=== PATIENT | female | born 1990 | race Caucasian/White ===

== ENCOUNTER 2024-05-04 12:59 | Outpatient (OUT) | payer BC, SELFPAY | END 2024-05-04 13:00 | disposition home or self-care (01) | LOC: PST 13:00 | PROVIDERS: Visit Provider Surgery | DX: Z01.818 Encounter for other preprocedural examination (principal); R10.13 Epigastric pain ==

== ENCOUNTER 2024-05-12 09:15 | Day surgery (SDC) | payer BC, SELFPAY ==
--- OUTSIDE RECORDS SUMMARY | 2024-05-12 09:23 | XMS_ITS | CCD ---
Author Organization [facility] [employer] [facility] Care Team Providers Care Certified Solid Waste Facility Operator Name Role Phone DHAVAL OCAMPO Unavailable Unavailable GIORGI-LAINA KATHERINE LEXY Unavailable Unav ailable Fru, [place] Primary Care Provider [phone] Fruth DIRECTOR WORK - SERVICE PROVIDER, [place] Primary Care Provider [phone] Fruth DIRECTOR WORK - SERVICE PROVIDER, [place] Primary Care Provider YUDITH PINA Referring Unavailabl e FRUTH, STACY Primary Care Unavailable BRYANT CORDOVA Referring Unavailable FRUTH, STACY Primary Care Unavailable BRYANT CORDOVA Referring Unavailable FRUTH, STACY Primary Care Unavailable FRUTH, STACY Primary Care Unavailable BRYANT CORDOVA Referring Unavailable FRUTH, STACY Primary Care Unavailable BRYANT CORDOVA Referring Unavailable FRUTH, STACY Primary Care Unavailable FRUTH, STACY E Attending Unavailable BRYATN CORDOVA Attending Unavailable BRYANT CORDOVA Attending Unavailable ONIEL KELLY Attending Unavailable Allergies Allergy Classification Reported Allergen(s) Allergy Type Date of Onset Reaction(s) Facility (4 sources) Penicillins; Translations: [PENICILLINS] Propensity to adverse reactions to drug (disorder) 7 [facility] Three Repository Medications Current Medications Medication Drug Class(es) Dates Sig (Normalized) Sig (Original) ALPRAZolam 0.25 mg oral tablet (2 sources) Benzodiazepine take 1 tablet by mouth once daily as needed for sleep ALPRAZolam (XANAX) 0.25 MG tablet Take 1 tablet by mouth nightly as needed for Sleep. Active busPIRone hydrochloride 15 mg oral tablet (3 sources) take 1 tablet by mouth once daily busPIRone (BUSPAR) 15 MG tablet Take 15 mg by mouth daily Active diphenhydrAMINE hydrochloride 25 mg oral tablet (2 sources) Histamine-1 Receptor Antagonist take 1 tablet by mouth every six hours as needed diphenhydrAMINE (BENADRYL) 25 MG tablet Take 25 mg by mouth every 6 hours as needed for Itching Active Ethinyl Estradiol / Ferrous fumarate / Norethindrone (4 sources) Estrogen Start: 01-22-2024 take 1 tablet by mouth once daily Norethin Glenn-Eth Estrad-FE (BLISOVI 24 FE) 1-20 MG-MCG(24) TABS Indications: Irregular menses Take 1 tablet by mouth daily 84 tablet 4 01/22/2024 Active Start: 10-15-2023 take 1 tablet by chuck th once daily BLISOVI 24 FE 1-20 MG-MCG(24) TABS Indications: Irregular menses TAKE 1 TABLET BY MOUTH EVERY DAY 84 tablet 1 10/15/2023 Active Start: 10-29-2018 take 1 tablet by chuck th once daily Norethin Glenn-Eth Estrad-FE 1-20 MG-MCG(24) TABS Indications: Irregular menses Take 1 tablet by mouth daily 28 tablet 12 10/29/2018 Active Start: 09-03-2018 take 1 tablet by chuck th once daily Norethin Glenn-Eth Estrad-FE 1-20 MG-MCG(24) TABS Indications: Irregular menses Take 1 tablet by mouth daily 28 tablet 12 09/03/2018 Active famotidine 20 mg oral tablet (1 source) Histamine-2 Receptor Antagonist Start: 08-27-2022 take 1 tablet by mouth in the morning famotidine (PEPCID) 20 MG tablet Take 1 tablet by mouth in the morning and 1 tablet in the evening. 08/27/2022 Active levonorgestrel 0.627771 mg/hr intrauterine system (1 source) Progestin, Progestin-containi ng Intrauterine Device Start: 09-26-2017 levonorgestrel (MIRENA) IUD 52 mg 1 each losartan potassium 50 mg oral tablet (1 source) Angiotensin 2 Receptor Bhargavi take 1 tablet by mouth once daily losartan (COZAAR) 50 MG tablet Take 1 tablet by mouth daily Active methylPREDNISolone 4 mg oral tablet (2 sources) Corticosteroid Start: 08-14-2022 methylPREDNISolone (MEDROL DOSEPACK) 4 MG tablet Indications: Rash and nonspecific skin eruption Take by mouth. 1 kit 08/14/2022 Active Completed/Discontinued Medications Medication Drug Class(es) Dates Sig (Normalized) Sig (Original) cloNIDine hydrochloride 0.1 mg oral tablet (1 source) Central alpha-2 Adrenergic Agonist Start: 12-23-2023 End: 12-23-2023 cloNIDine (CATAPRES) tablet 0.1 mg iopamidol (ISOVUE-370) 76 % injection 75 mL (1 source) Start: 04-21-2024 End: 04-21-2024 take 1 dose intravenously once 75 mL, IntraVENous, IMG ONCE PRN, 1 dose, Starting on Sat04/21/24 at 1349, Until Sat04/21/24 at 1402, Other 1 ml LORazepam 2 mg/ml injection (1 source) Benzodiazepine Start: 12-23-2023 End: 12-23-2023 LORazepam (ATIVAN) injection 1 mg Problems Active Problems Problem Classification Problem Date Documented Da te Episodic/Chronic Abdominal pain (7 sources) Finding of sensation of abdomen; Translations: [Unspecified abdominal pain] Onset: 07-12-2017 Resolved: 07-14-2017 07-14-2017 Episodic Essential hypertension (2 sources) Hypertensive disorder; Translations: [Essential (primary) hypertension] Onset: 12-23-2023 12-23-2023 Chronic Nausea and vomiting (4 sources) Nausea; Translations: [Nausea] Onset: 04-17-2024 04-21-2024 Episodic Past or Other Problems Problem Classification Problem Date Documented Da te Episodic/Chronic Allergic reactions (2 sources) Allergic contact dermatitis, unspecified cause; Translations: [Allergic contact dermatitis, unspecified cause] Onset: 02-12-2017 Episodic Diabetes or abnormal glucose tolerance complicating ; childbirth; or the puerperium (3 sources) Gestational diabetes mellitus; Translations: [Gestational diabetes mellitus in , unspecified control] Onset: 05-15-2017 05-15-2017 Episodic Other and delivery including normal (3 sources) Normal ; Translations: [Encounter for supervision of normal first , third trimester] Onset: 07-12-2017 Resolved: 07-14-2017 07-14-2017 Episodic Other screening for suspected conditions (not mental disorders or infectious disease) (1 source) Encounter for screening for malignant neoplasm of cervix; Translations: [Encounter for screening for malignant neoplasm of cervix] Onset: 01-22-2024 Episodic Unclassified (1 source) Finding of sensation of abdomen; Translations: [Abdominal cramping] Onset: 07-12-2017 Resolved: 07-14-2017 07-14-2017 Results Test Name Value Interpretation Reference Range Facility CT ABDOMEN PELVIS W IV CONTR Luis Fernando 04-21-2024 CT ABDOMEN PELVIS W IV CONTRAST EXAMINATION: CT OF THE ABDOMEN AND PELVIS WITH CONTRAST 04/21/2024 2:06 pm TECHNIQUE: CT of the abdomen and pelvis was performed with the administration of intravenous contrast. Multiplanar reformatted images are provided for review. Automated exposure control, iterative reconstruction, and/or weight based adjustment of the mA/kV was utilized to reduce the radiation dose to as low as reasonably achievable. COMPARISON: None. HISTORY: ORDERING SYSTEM PROVIDED HISTORY: Abdominal pain, epigastric TECHNOLOGIST PROVIDED HISTORY: Abdominal pain, possible ileus per xr STAT Creatinine as needed:->Yes FINDINGS: CARDIOVASCULAR: The visualized heart and pericardium demonstrate no acute abnormality. The aorta and branch vessels are patent and normal in caliber. LUNG BASES: There are no focal consolidations or pleural effusions. HEPATOBILIARY: There are no focal hepatic lesions. There is no biliary ductal dilatation. The gallbladder is unremarkable. SPLEEN: Unremarkable. PANCREAS: Unremarkable ADRENAL GLANDS: Unremarkable. KIDNEYS: Kidneys are normal in size and contour and demonstrate symmetric enhancement. There is no hydronephrosis. ABDOMINAL NODES: No adenopathy is appreciated. PELVIC ORGANS: The urinary bladder is unremarkable. The uterus is unremarkable. PERITONEUM/MESENTERY/B OWEL: The stomach is unremarkable. There is no bowel obstruction. There is no bowel wall thickening. The appendix is normal. BONES/SOFT TISSUES: There is no acute osseous or soft tissue abnormality. IMPRESSION: No acute intra-abdominal or pelvic process. Interpreted by: Eric De Oliveira MD Signed by: Eric De Oliveira MD 04/21/24 Final result Normal [facility] CT Abdomen and Pelvis W cont rast José 04-21-2024 No acute intra-abdominal or pelvic process. [facility] RIS CONSOLIDATED EXAMINATION: CT OF THE ABDOMEN AND PELVIS WITH CONTRAST 04/21/2024 2:06 pm TECHNIQUE: CT of the abdomen and pelvis was performed with the administration of intravenous contrast. Multiplanar reformatted images are provided for review. Automated exposure control, iterative reconstruction, and/or weight based adjustment of the mA/kV was utilized to reduce the radiation dose to as low as reasonably achievable. COMPARISON: None. HISTORY: ORDERING SYSTEM PROVIDED HISTORY: Abdominal pain, epigastric TECHNOLOGIST PROVIDED HISTORY: Abdominal pain, possible ileus per xr STAT Creatinine as needed:->Yes FINDINGS: CARDIOVASCULAR: The visualized heart and pericardium demonstrate no acute abnormality. The aorta and branch vessels are patent and normal in caliber. LUNG BASES: There are no focal consolidations or pleural effusions. HEPATOBILIARY: There are no focal hepatic lesions. There is no biliary ductal dilatation. The gallbladder is unremarkable. SPLEEN: Unremarkable. PANCREAS: Unremarkable ADRENAL GLANDS: Unremarkable. KIDNEYS: Kidneys are normal in size and contour and demonstrate symmetric enhancement. There is no hydronephrosis. ABDOMINAL NODES: No adenopathy is appreciated. PELVIC ORGANS: The urinary bladder is unremarkable. The uterus is unremarkable. PERITONEUM/MESENTERY/B OWEL: The stomach is unremarkable. There is no bowel obstruction. There is no bowel wall thickening. The appendix is normal. BONES/SOFT TISSUES: There is no acute osseous or soft tissue abnormality. [facility] RIS CONSOLIDATED Eric De Oliveira MD - 04/21/2024 EXAMINATION: CT OF THE ABDOMEN AND PELVIS WITH CONTRAST 04/21/2024 2:06 pm TECHNIQUE: CT of the abdomen and pelvis was performed with the administration of intravenous contrast. Multiplanar reformatted images are provided for review. Automated exposure control, iterative reconstruction, and/or weight based adjustment of the mA/kV was utilized to reduce the radiation dose to as low as reasonably achievable. COMPARISON: None. HISTORY: ORDERING SYSTEM PROVIDED HISTORY: Abdominal pain, epigastric TECHNOLOGIST PROVIDED HISTORY: Abdominal pain, possible ileus per xr STAT Creatinine as needed:->Yes FINDINGS: CARDIOVASCULAR: The visualized heart and pericardium demonstrate no acute abnormality. The aorta and branch vessels are patent and normal in caliber. LUNG BASES: There are no focal consolidations or pleural effusions. HEPATOBILIARY: There are no focal hepatic lesions. There is no biliary ductal dilatation. The gallbladder is unremarkable. SPLEEN: Unremarkable. PANCREAS: Unremarkable ADRENAL GLANDS: Unremarkable. KIDNEYS: Kidneys are normal in size and contour and demonstrate symmetric enhancement. There is no hydronephrosis. ABDOMINAL NODES: No adenopathy is appreciated. PELVIC ORGANS: The urinary bladder is unremarkable. The uterus is unremarkable. PERITONEUM/MESENTERY/B OWEL: The stomach is unremarkable. There is no bowel obstruction. There is no bowel wall thickening. The appendix is normal. BONES/SOFT TISSUES: There is no acute osseous or soft tissue abnormality. IMPRESSION: No acute intra-abdominal or pelvic process. [facility] Radiology Study observation (narrative) [facility] CT Abdomen and Pelvis W cont rast IVOrdered By: Eric De Oliveira on 04-21-2024 [facility] Work Phone: Amylaseon 04-17-2024 Amylase [Catalytic activity/Vol] 30 U/L Normal 28-100 [facility] Comment on above: Performed By: #### C DP, BHCG, LIP, CP, GUEVARA #### [facility] [address] [place] [address] [place] [address] [employer] Driver Off [address]: Vincenzo Doherty MD CBC with Diffon 04-17-2024 Abs. Basophil 0.03 k/uL Normal 0.00-0.20 [facility] Comment on above: Performed By: #### C DP, BHCG, LIP, CP, GUEVARA #### [facility] [address] [place], [place] [id number] [employer]ump Truck Driver Off Highway: Vincenzo Doherty MD Abs.Imm.Granulocyte <0.03 Normal 0.00-0.30 [facility] Comment on above: Performed By: #### C DP, BHCG, LIP, CP, GEUVARA #### [facility] [address] [place] [address] [employer] Driver Off [address]: Vincenzo Doherty MD Abs.Neutrophil (Seg) 5.15 k/uL Normal 1.50-8.10 [facility] Comment on above: Performed By: #### C DP, BHCG, LIP, CP, GUEVARA #### [facility] [address] [place], [place] [id number] [employer] Driver Off Highway: Vincenzo Doherty MD Basophils/100 WBC (Bld) 0 % Normal 0-2 [facility] Comment on above: Performed By: #### C DP, BHCG, LIP, CP, GUEVARA #### [address] [place], [facility]83 [employer] Driver Off Highway: Vincenzo Doherty MD Eosinophils (Bld) [#/Vol] 0.04 10*3/uL Normal 0.00-0.44 [facility] Comment on above: Performed By: #### C DP, BHCG, LIP, CP, GUEVARA #### [address] [place], [place] [address] [employer] Driver Off Highway: Vincenzo Doherty MD Eosinophils/100 WBC (Bld) 1 % Normal 1-4 [facility] Comment on above: Performed By: #### C DP, BHCG, LIP, CP, GUEVARA #### [address] [place], [facility]83 [employer] Driver Off Highway: Vincenzo Doherty MD Erythrocyte distribution width (RBC) [Ratio] 12.0 % Normal 11.8-14.4 [facility] Comment on above: Performed By: #### C DP, BHCG, LIP, CP, GUEVARA #### [address] [place] [address] [employer] Driver Off [address]: Vincenzo Doherty MD Hematocrit (Bld) [Volume fraction] 40.1 % Normal 36.3-47.1 [facility] Comment on above: Performed By: #### C DP, BHCG, LIP, CP, GUEVARA #### [address] [place], [facility]83 [employer]ump Truck Driver Off Highway: Vincenzo Doherty MD Hemoglobin (Bld) [Mass/Vol] 13.7 g/dL Normal 11.9-15.1 [facility] Comment on above: Performed By: #### C DP, BHCG, LIP, CP, GUEVARA #### [address] [place], [facility]83 [employer] Driver Off Highway: Vincenzo Doherty MD Immature granulocytes/100 WBC (Bld) 0 % Normal 0 [facility] Comment on above: Performed By: #### C DP, BHCG, LIP, CP, GUEVARA #### [facility] [address] [place], [place] [address] [employer] [address] Driver Off [address]: Vincenzo Doherty MD Lymphocytes (Bld) [#/Vol] 1.31 10*3/uL Normal 1.10-3.70 [facility] Comment on above: Performed By: #### C DP, BHCG, LIP, CP, GUEVARA #### [facility] [address] [place], [facility]83 Dump Truck Driver Off Highway: Vincenzo Doherty MD Lymphocytes/100 WBC (Bld) 19 % Low 24-43 [facility] Comment on above: Performed By: #### C DP, BHCG, LIP, CP, GUEVARA #### [address] [place], [place] [address] [employer] [address] Driver Off [address]: Vincenzo Doherty MD MCH (RBC) [Entitic mass] 32.2 pg Normal 25.2-33.5 [facility] Comment on above: Performed By: #### C DP, BHCG, LIP, CP, GUEVARA #### [address] [place], [facility]83 Dump Truck Driver Off Highway: Vincenzo Doherty MD MCHC (RBC) [Mass/Vol] 34.2 g/dL Normal 28.4-34.8 [facility] Comment on above: Performed By: #### C DP, BHCG, LIP, CP, GUEVARA #### [address] [place], [facility]83 Dump Truck Driver Off Highway: Vincenzo Doherty MD MCV (RBC) [Entitic vol] 94.4 fL Normal 82.6-102.9 [facility] Comment on above: Performed By: #### C DP, BHCG, LIP, CP, GUEVARA #### [address] [place], [facility]83 Dump Truck Driver Off Highway: Vincenzo Doherty MD Monocytes (Bld) [#/Vol] 0.30 10*3/uL Normal 0.10-1.20 [facility] Comment on above: Performed By: #### C DP, BHCG, LIP, CP, GUEVARA #### [facility] [address] [place], [place] [id number] Dump Truck Driver Off Highway: Vincenzo Doherty MD Monocytes/100 WBC (Bld) 4 % Normal 3-12 [facility] Comment on above: Performed By: #### C DP, BHCG, LIP, CP, GUEVARA #### [facility] [address] [place], [facility]83 Dump Truck Driver Off Highway: Vincenzo Doherty MD Neutrophil (Seg) 76 % High 36-65 [facility] Comment on above: Performed By: #### C DP, BHCG, LIP, CP, GUEVARA #### [address] [place], [place] [address] Dump Truck Driver Off Highway: Vincenzo Doherty MD NRBC Automated 0.0 per 100 WBC Normal 0.0 [facility] Comment on above: Performed By: #### C DP, BHCG, LIP, CP, GUEVARA #### [address] [place], [place] [id number] Dump Truck Driver Off Highway: Vincenzo Doherty MD Platelet mean volume (Bld) [Entitic vol] 10.3 fL Normal 8.1-13.5 [facility] Comment on above: Performed By: #### C DP, BHCG, LIP, CP, GUEVARA #### [address] [place], [place] [id number] Dump Truck Driver Off Highway: Vincenzo Doherty MD Platelets (Bld) [#/Vol] 221 10*3/uL Normal 138-453 [facility] Comment on above: Performed By: #### C DP, BHCG, LIP, CP, GUEVARA #### [address] [place], [facility]83 D[employer] Truck Driver Off Highway: Vincenzo Doherty MD RBC (Bld) [#/Vol] 4.25 10*6/uL Normal 3.95-5.11 [facility] Comment on above: Performed By: #### C DP, BHCG, LIP, CP, GUEVARA #### [facility] [address] [place], [facility]83 Dump Truck Driver Off Highway: Vincenzo Doherty MD WBC (Bld) [#/Vol] 6.9 10*3/uL Normal 3.5-11.3 [facility] Comment on above: Performed By: #### C DP, BHCG, LIP, CP, GUEVARA #### [facility] [address] [place], [facility]12 ( Dump [employer] Driver Off Highway: Vincenzo Doherty MD Comp Metabolic Profon 2023 Albumin [Mass/Vol] 4.9 g/dL Normal 3.5-5.2 [facility] Comment on above: Performed By: #### C DP, BHCG, LIP, CP, GUEVARA #### [facility] [address] [place], [place] [address] [employer] Driver Off Highway: Vincenzo Doherty MD Albumin/Glob Ratio 2.3 Normal 1.0-2.5 [facility] Comment on above: Performed By: #### C DP, BHCG, LIP, CP, GUEVARA #### [facility] [address] [place], [facility] Dump Truck Driver Off Highway: Vincenzo Doherty MD Alkaline Phos 36 U/L Normal 35-104 [facility] Comment on above: Performed By: #### C DP, BHCG, LIP, CP, GUEVARA #### [facility] [address] [place], [place] [phone] Dump Truck Driver Off Highway: Vincenzo Doherty MD ALT [Catalytic activity/Vol] 8 U/L Low 10-35 [facility] Comment on above: Performed By: #### C DP, BHCG, LIP, CP, GUEVARA #### [facility] [address] [place], [place] [id number] [employer]ump Truck Driver Off Highway: Vincenzo Doherty MD Anion gap [Moles/Vol] 15 mmol/L Normal 9-16 [facility] Comment on above: Performed By: #### C DP, BHCG, LIP, CP, GUEVARA #### [facility] [address] [place], [place] [id number] [employer]ump Truck Driver Off Highway: Vincenzo Doherty MD AST [Catalytic activity/Vol] 15 U/L Normal 10-35 [facility] Comment on above: Performed By: #### C DP, BHCG, LIP, CP, GUEVARA #### [facility] [address] [place], [place] [id number] Dump Truck Driver Off Highway: Vincenzo Doherty MD Bilirubin [Mass/Vol] 0.4 mg/dL Normal 0.00-1.20 [facility] Comment on above: Performed By: #### C DP, BHCG, LIP, CP, GUEVARA #### [address] [place], [place] [phone] Dump Truck Driver Off Highway: Vincenzo Doherty MD BUN/CRE Ratio 9 Normal 9-20 [facility] Comment on above: Performed By: #### C DP, BHCG, LIP, CP, GUEVARA #### [address] [place], [place] [address] [employer]ump Truck Driver Off Highway: Vincenzo Doherty MD Calcium [Mass/Vol] 9.8 mg/dL Normal 8.6-10.4 [facility] Comment on above: Performed By: #### C DP, BHCG, LIP, CP, GUEVARA #### [facility] [address] [place], [place] [id number] [employer]ump Truck Driver Off Highway: Vincenzo Doherty MD Chloride [Moles/Vol] 103 mmol/L Normal 98-107 [facility] Comment on above: Performed By: #### C DP, BHCG, LIP, CP, GUEVARA #### [facility] [address] [place] [address] [address] Driver Off [address]: Vincenzo Doherty MD CO2 [Moles/Vol] 23 mmol/L Normal 20-31 [facility] Comment on above: Performed By: #### C DP, BHCG, LIP, CP, GUEVARA #### [facility] [address] [place] [address] [address] Driver Off [address]: Vincenzo Doherty MD Creatinine [Mass/Vol] 0.7 mg/dL Normal 0.50-0.90 [facility] Comment on above: Performed By: #### C VANESSA BHCG, LIP, CP, GUEVARA #### [facility] [address] [place] [address] [address] Driver Off [address]: Vincenzo Doherty MD GFR/1.73 sq M.predicted among non-blacks MDRD (S/P/Bld) [Vol rate/Area] mL/min/{1.73_m2} Normal >60 [facility] Comment on above: Result Comment: These results are not intended for use in patients <18 years of age. eGFR results are calculated without a race factor using the 2020 CKD-EPI equation. Careful clinical correlation is recommended, particularly when comparing to results calculated using previous equations. The CKD-EPI equation is less accurate in patients with extremes of muscle mass, extra-renal metabolism of creatine, excessive creatine ingestion, or following therapy that affects renal tubular secretion. Performed By: #### C DP, BHCG, LIP, CP, GUEVARA #### [facility] [address] [place] [address] [address] Driver Off [address]: Vincenzo Doherty MD Glucose [Mass/Vol] 79 mg/dL Normal 74-99 [facility] Comment on above: Performed By: #### C DP, BHCG, LIP, CP, GUEVARA #### [facility] [address] [place] [address] [address] Driver Off [address]: Vincenzo Doherty MD Potassium [Moles/Vol] 4.0 mmol/L Normal 3.7-5.3 [facility] Comment on above: Performed By: #### C DP, BHCG, LIP, CP, GUEVARA #### [facility] [address] [place] [address] [address] Driver Off [address]: Vincenzo Doherty MD Protein [Mass/Vol] 7.0 g/dL Normal 6.6-8.7 [facility] Comment on above: Performed By: #### C DP, BHCG, LIP, CP, GUEVARA #### [facility] [address] [place] [address] [address] Driver [address]: Vincenzo Doherty MD Sodium [Moles/Vol] 141 mmol/L Normal 136-145 [facility] Comment on above: Performed By: #### C DP, BHCG, LIP, CP, GUEVARA #### [address] [place], [facility]83 Dump Truck Driver Off Highway: Vincenzo Doherty MD Urea nitrogen [Mass/Vol] 6 mg/dL Normal 6-20 [facility] Comment on above: Performed By: #### C DP, BHCG, LIP, CP, GUEVARA #### [address] [place] [address] [address] Driver [address]: Vincenzo Doherty MD HCG, Quanton 04-17-2024 HCG, Quant <0.2 Normal 0-7 [facility] Comment on above: Result Comment: Non-preg premeno <=5 Postmeno <=8 Male <=3 If HCG results do not concur with clinical observations, additional testing to confirm results is recommended. Performed By: #### C DP, BHCG, LIP, CP, GUEVARA #### [facility] [address] [place] [address] [address] Driver Off [address]: Vincenzo Doherty MD Lipaseon 04-17-2024 Lipase [Catalytic activity/Vol] 16 U/L Normal 13-60 [facility] Comment on above: Performed By: #### C DP, BHCG, LIP, CP, GUEVARA #### [facility] [address] [place] [address] [address]: Vincenzo Doherty MD XR ABDOMEN (2 VIEWS)on 04-17 XR ABDOMEN (2 VIEWS) EXAMINATION: TWO XRAY VIEWS OF THE ABDOMEN 04/17/2024 12:42 pm COMPARISON: None. HISTORY: ORDERING SYSTEM PROVIDED HISTORY: Abdominal pain, acute FINDINGS: Gas-filled colon. Osseous structures unremarkable. No pathologic calcifications. IMPRESSION: Possible mild colonic ileus Interpreted by: Javier Stone MD Signed by: Javier Stone MD 04/17/24 Final result Normal [facility] Cytology Reporton 01-22-2024 Cytology report Cyto stain.thin prep Doc (Cvx/Vag) (NOTE) Path Number: [id number] DIAGNOSIS Imaged ThinPrep Pap - Cervical (1 monolayer slide): Specimen Adequacy: Satisfactory for evaluation. -Endocervical/transfor mation zone component is absent. Descriptive Diagnosis: Negative for intraepithelial lesion or malignancy. [employer]otech Screener: EY Electronically Signed Out Mami Cantor CT(ASCP) ey/02/04/2024 Source of Specimen: A: Imaged ThinPrep Pap - Cervical (1 monolayer slide) HPV Reflex?............... .......HPV if ASCUS Clinical History Contraceptive use Z12.4 Encounter for screening for malignant neoplasm of cervix LMP: 01/16/2024 Processing Lab: [address] [id number] Interpretation performed at [address] [phone] This Pap Test has been evaluated with the assistance of the ThinPrep Pap Test Imaging System. The Pap smear is a screening test primarily for squamous epithelial lesions, which is subject to both false negative and false positive results. Your patient should be reminded to consult you immediately if she experiences any suspicious signs or symptoms, regardless of her Pap smear result. GYNECOLOGIC CYTOLOGY REPORT Patient Name: BISI GAMBOA [facility] Rec: [id number] [facility] [employer] [facility] ANATOMIC PATHOLOGY [address] [place] [address]. [place], [place] [address] Normal [facility] Basic Metabolic Panelon 05- Anion gap [Moles/Vol] 15 mmol/L 9 - 17 mmol/L [facility] Calcium [Mass/Vol] 9.7 mg/dL 8.6 - 10. 4 mg/dL [facility] Chloride [Moles/Vol] 102 mmol/L 98 - 107 mmol/L [facility] CO2 [Moles/Vol] 23 mmol/L 20 - 31 mmol/L [facility] Creatinine [Mass/Vol] 0.6 mg/dL 0.5 - 0.9 mg/dL [facility] Est, Tani Jeter Rate - [facility] Comment on above: These results are not intended for use in patients <18 years of age. eGFR results are calculated without a race factor using the 2020 CKD-EPI equation. Careful clinical correlation is recommended, particularly when comparing to results calculated using previous equations. The CKD-EPI equation is less accurate in patients with extremes of muscle mass, extra-renal metabolism of creatine, excessive creatine ingestion, or following therapy that affects renal tubular secretion. Glucose [Mass/Vol] 141 mg/dL High 70 - 99 mg/dL [facility] Interpretation and review of laboratory results Abnormal [facility] Potassium [Moles/Vol] 3.9 mmol/L 3.7 - 5.3 mmol/L [facility] Sodium [Moles/Vol] 140 mmol/L 135 - 144 mmol/L [facility] Urea nitrogen [Mass/Vol] 6 mg/dL 6 - 20 mg/dL [facility] Urea nitrogen/Creatinine [Mass ratio] 10 mg/mg 9 - 20 [facility] Basic Metabolic Profon 12-22 Anion gap [Moles/Vol] 15 mmol/L Normal - [facility] Comment on above: Performed By: #### B MP, JUWAN, OLIVIA #### [facility] [address] [place] [address] Dump [address] Driver Off Highway: Vincenzo Doherty MD BUN/CRE Ratio 10 Normal 9-20 [facility] Comment on above: Performed By: #### B KAI CDP, TROPI #### [facility] [address] [place], [place] [phone] [employer] Driver Off Highway: Vincenzo Doherty MD Calcium [Mass/Vol] 9.7 mg/dL Normal 8.6-10.4 [facility] Comment on above: Performed By: #### B KAI CDP, TROPI #### [facility] [address] [place], [place] [phone] [employer] Truck Driver Off Highway: Vincenzo Doherty MD Chloride [Moles/Vol] 102 mmol/L Normal 98-107 [facility] Comment on above: Performed By: #### B KAI CDP, TROPI #### [facility] [address] [place], [place] [phone] Dump Truck Driver Off Highway: Vincenzo Doherty MD CO2 [Moles/Vol] 23 mmol/L Normal 20-31 [facility] Comment on above: Performed By: #### B JUWAN QUINN, TROPI #### [facility] [address] [place], [place] [phone] [employer]ump Truck Driver Off Highway: Vinecnzo oDherty MD Creatinine [Mass/Vol] 0.6 mg/dL Normal 0.5-0.9 [facility] Comment on above: Performed By: #### B JUWAN QUINN, TROPI #### [facility] [address] [place], [place] [phone] [employer]ump Truck Driver Off Highway: Vincenzo Doherty MD GFR/1.73 sq M.predicted among non-blacks MDRD (S/P/Bld) [Vol rate/Area] mL/min/{1.73_m2} Normal >60 [facility] Comment on above: Result Comment: These results are not intended for use in patients <18 years of age. eGFR results are calculated without a race factor using the 2020 CKD-EPI equation. Careful clinical correlation is recommended, particularly when comparing to results calculated using previous equations. The CKD-EPI equation is less accurate in patients with extremes of muscle mass, extra-renal metabolism of creatine, excessive creatine ingestion, or following therapy that affects renal tubular secretion. Performed By: #### B JUWAN QUINN, TROPI #### [facility] [address] [place], [place] [phone] [employer] Truck Driver Off Highway: Vincenzo Doherty MD Glucose [Mass/Vol] 141 mg/dL High 70-99 [facility] Comment on above: Performed By: #### B JUWAN QUINN, TROPI #### [facility] [address] [place], [place] [phone] D[employer] Truck Driver Off Highway: Vincenzo Doherty MD Potassium [Moles/Vol] 3.9 mmol/L Normal 3.7-5.3 [facility] Comment on above: Performed By: #### B JUWAN QUINN, TROPI #### [address] [place], [place] [phone] Dump Truck Driver Off Highway: Vincenzo Doherty MD Sodium [Moles/Vol] 140 mmol/L Normal 135-144 [facility] Comment on above: Performed By: #### B JUWAN QUINN, TROPI #### [facility] [address] [place] [address] Dr. [place], [place] [id number] Dump Truck Driver Off Highway: Vincenzo Doherty MD Urea nitrogen [Mass/Vol] 6 mg/dL Normal 6-20 [facility] Comment on above: Performed By: #### B JUWAN QUINN, TROPI #### [facility] [address] [place], [place] [phone] [employer] Truck Driver Off Highway: Vincenzo Doherty MD CBC with Auto Differentialon 12-23-2023 Basophils (Bld) [#/Vol] 0.03 10*3/uL [facility] Basophils/100 WBC (Bld) 0 % 0 - 2 % [facility] Eosinophils (Bld) [#/Vol] 0.08 10*3/uL [facility] Eosinophils/100 WBC (Bld) 1 % 1 - 4 % [facility] Erythrocyte distribution width (RBC) [Ratio] 11.6 % Low 11.8 - 14.4 % [facility] Hematocrit (Bld) [Volume fraction] 41.9 % 36.3 - 47.1 % [facility] Hemoglobin (Bld) [Mass/Vol] 14.8 g/dL 11.9 - 15.1 g/dL [facility] Immature granulocytes (Bld) [#/Vol] [facility] Immature granulocytes/100 WBC (Bld) 0 % 0 [facility] Interpretation and review of laboratory results Abnormal [facility] Lymphocytes/100 WBC (Bld) 25 % 24 - 43 % [facility] Lymphocytes/100 WBC (Bld) 2.28 % [facility] MCH (RBC) [Entitic mass] 32.1 pg 25.2 - 33.5 pg [facility] MCHC (RBC) [Mass/Vol] 35.3 g/dL High 28.4 - 34.8 g/dL [facility] MCV (RBC) [Entitic vol] 90.9 fL 82.6 - 102.9 fL [facility] Monocytes/100 WBC (Bld) 4 % 3 - 12 % [facility] Monocytes/100 WBC (Bld) 0.39 % [facility] Neutrophils/100 WBC (Bld) 70 % High 36 - 65 % [facility] Nucleated RBC/100 WBC (Bld) [Ratio] 0.0 % 0.0 per 100 WBC [facility] Platelet mean volume (Bld) [Entitic vol] 10.0 fL 8.1 - 13.5 fL [facility] Platelets (Bld) [#/Vol] 241 10*3/uL [facility] RBC (Bld) [#/Vol] 4.61 10*6/uL 3.95 - 5.1 1 m/uL [facility] Segmented neutrophils/100 WBC (Bld) 6.25 % [facility] WBC other (Bld) [#/Vol] 9.1 [facility] CBC with Diffon 12-23-2023 Abs. Basophil 0.03 k/uL Normal 0.00-0.20 [facility] Comment on above: Performed By: #### B JUWAN QUINN, TROPI #### [facility] [address] [place] [address] Dr. [place], [place] [address] Dump Truck Driver Off Highway: Vincenzo Doherty MD Abs.Imm.Granulocyte <0.03 Normal 0.00-0.30 [facility] Comment on above: Performed By: #### B JUWAN QUINN, TROPI #### [address] [place], [place] [address] Dump Truck Driver Off Highway: Vincenzo Doherty MD Abs.Neutrophil (Seg) 6.25 k/uL Normal 1.50-8.10 [facility] Comment on above: Performed By: #### B JUWAN QUINN, TROPI #### [address] [place], [place] [address] D[employer] Driver Off Highway: Vincenzo Doherty MD Basophils/100 WBC (Bld) 0 % Normal 0-2 [facility] Comment on above: Performed By: #### B JUWAN QUINN, TROPI #### [address] [place], [place] [address] [employer] Driver Off Highway: Vincenzo Doherty MD Eosinophils (Bld) [#/Vol] 0.08 10*3/uL Normal 0.00-0.44 [facility] Comment on above: Performed By: #### B JUWAN QUINN, TROPI #### [address] [place], [place] [address] [employer] Driver Off Highway: Vincenzo Doherty MD Eosinophils/100 WBC (Bld) 1 % Normal 1-4 [facility] Comment on above: Performed By: #### B JUWAN QUINN, TROPI #### [address] [place], [facility]83 Dump Truck Driver Off Highway: Vincenzo Doherty MD Erythrocyte distribution width (RBC) [Ratio] 11.6 % Low 11.8-14.4 [facility] Comment on above: Performed By: #### B JUWAN QUINN, TROPI #### [facility] [address] [place] [address] Dr. [place], [place] [phone] Dump Truck Driver Off Highway: Vincenzo Doherty MD Hematocrit (Bld) [Volume fraction] 41.9 % Normal 36.3-47.1 [facility] Comment on above: Performed By: #### B KAI CDP, TROPI #### [address] [place], [place] 1539883 [employer] Driver Off Highway: Vincenzo Doherty MD Hemoglobin (Bld) [Mass/Vol] 14.8 g/dL Normal 11.9-15.1 [facility] Comment on above: Performed By: #### B JUWAN QUINN, TROPI #### [address] [place], [place] 5645783 [employer] Driver Off Highway: Vincenzo Doherty MD Immature granulocytes/100 WBC (Bld) 0 % Normal 0 [facility] Comment on above: Performed By: #### B JUWAN QUINN, TROPI #### [address] [place], [place] 8678583 [employer] Driver Off Highway: Vincenzo Doherty MD Lymphocytes (Bld) [#/Vol] 2.28 10*3/uL Normal 1.10-3.70 [facility] Comment on above: Performed By: #### B JUWAN QUINN, TROPI #### [address] [place], [place] 0077683 [employer]ump Truck Driver Off Highway: Vincenzo Doherty MD Lymphocytes/100 WBC (Bld) 25 % Normal 24-43 [facility] Comment on above: Performed By: #### B JUWAN QUINN, TROPI #### [address] [place], [place] 1868483 [employer]ump Truck Driver Off Highway: Vincenzo Doherty MD MCH (RBC) [Entitic mass] 32.1 pg Normal 25.2-33.5 [facility] Comment on above: Performed By: #### B JUWAN QUINN, TROPI #### [facility] [address] [place], [place] [phone] D[employer] Truck Driver Off Highway: Vincenzo Doherty MD MCHC (RBC) [Mass/Vol] 35.3 g/dL High 28.4-34.8 [facility] Comment on above: Performed By: #### B MP, CDP, TROPI #### [facility] [address] [place], [facility]83 Dump Truck Driver Off Highway: Vincenzo Doherty MD MCV (RBC) [Entitic vol] 90.9 fL Normal 82.6-102.9 [facility] Comment on above: Performed By: #### B MP, CDP, TROPI #### [address] [place], [place] [address] [employer] Driver Off Highway: Vincenzo Doherty MD Monocytes (Bld) [#/Vol] 0.39 10*3/uL Normal 0.10-1.20 [facility] Comment on above: Performed By: #### B MP, CDP, TROPI #### [address] [place], [facility]83 D[employer] Driver Off Highway: Vincenzo Doherty MD Monocytes/100 WBC (Bld) 4 % Normal 3-12 [facility] Comment on above: Performed By: #### B MP, CDP, TROPI #### [facility] [address] [place], [place] [address] [employer] Driver Off Highway: Vincenzo Doherty MD Neutrophil (Seg) 70 % High 36-65 [facility] Comment on above: Performed By: #### B MP, CDP, TROPI #### [facility] [address] [place], [facility]83 D[employer] Truck Driver Off Highway: Vincenzo Doherty MD NRBC Automated 0.0 per 100 WBC Normal 0.0 [facility] Comment on above: Performed By: #### B MP, CDP, TROPI #### [address] [place] [facility]46 [employer] Driver Off Highway: Vincenzo Doherty MD Platelet mean volume (Bld) [Entitic vol] 10.0 fL Normal 8.1-13.5 [facility] Comment on above: Performed By: #### B MP, CDP, TROPI #### [facility] [address] [place] [address] [employer] [address] Driver Off Highway: Vincenzo Doherty MD Platelets (Bld) [#/Vol] 241 10*3/uL Normal 138-453 [facility] Comment on above: Performed By: #### B MP, CDP, TROPI #### [facility] [address] [place], [place] 1487583 [employer] Driver Off Highway: Vincenzo Doherty MD RBC (Bld) [#/Vol] 4.61 10*6/uL Normal 3.95-5.11 [facility] Comment on above: Performed By: #### B MP, CDP, TROPI #### [facility] [address] [place] [address] [employer] [address] Driver Off Highway: Vincenzo Doherty MD WBC (Bld) [#/Vol] 9.1 10*3/uL Normal 3.5-11.3 [facility] Comment on above: Performed By: #### B MP, CDP, TROPI #### [facility] [address] [place], [place] 1504183 Dump Truck Driver Off Highway: Vincenzo Doherty MD Portable XR Chest AP single viewon 12-23-2023 No acute process. [facility] RIS CONSOLIDATED EXAMINATION: ONE XRAY VIEW OF THE CHEST 12/23/2023 5:21 pm COMPARISON: None. HISTORY: ORDERING SYSTEM PROVIDED HISTORY: chest discomfort/BP TECHNOLOGIST PROVIDED HISTORY: chest discomfort/BP FINDINGS: The lungs are without acute focal process. There is no effusion or pneumothorax. The cardiomediastinal silhouette is without acute process. The osseous structures are without acute process. [facility] RIS CONSOLIDATED Devan Still MD - 12/23/2023 EXAMINATION: ONE XRAY VIEW OF THE CHEST 12/23/2023 5:21 pm COMPARISON: None. HISTORY: ORDERING SYSTEM PROVIDED HISTORY: chest discomfort/BP TECHNOLOGIST PROVIDED HISTORY: chest discomfort/BP FINDINGS: The lungs are without acute focal process. There is no effusion or pneumothorax. The cardiomediastinal silhouette is without acute process. The osseous structures are without acute process. IMPRESSION: No acute process. [facility] Radiology Study observation (narrative) [facility] Portable XR Chest AP single viewOrdered By: Devan Still on 12-23-2023 [facility] Work Phone: Troponinon 12-23-2023 Troponin I.cardiac High sensitivity method [Mass/Vol] ng/L 0 - 14 ng/L [facility] Comment on above: High Sensitivity Tro ponin values cannot be compared with other Troponin methodologies. [facility] Troponin, High Sens <6 Normal 0-14 [facility] Comment on above: Result Comment: High Sensitivity Troponin values cannot be compared with other Troponin methodologies. Performed By: #### B MP, CDP, TROPI ####[facility] [place] [address] lab Director: Vincenzo Doherty MD XR CHEST PORTABLEon 12-23-19 XR CHEST PORTABLE EXAMINATION: ONE XRAY VIEW OF THE CHEST 12/23/2023 5:21 pm COMPARISON: None. HISTORY: ORDERING SYSTEM PROVIDED HISTORY: chest discomfort/BP TECHNOLOGIST PROVIDED HISTORY: chest discomfort/BP FINDINGS: The lungs are without acute focal process. There is no effusion or pneumothorax. The cardiomediastinal silhouette is without acute process. The osseous structures are without acute process. IMPRESSION: No acute process. Interpreted by: Devan Still MD Signed by: Devan Still MD 12/23/23 Final result Normal [facility] Microscopic Urinalysison Amorphous, UA NOT REPORTED None [facility] [place] [place] Bacteria, UA NOT REPORTED None [facility] th- [place], [place] Casts UA NOT REPORTED /LPF [facility] - [place], [place] Crystals, UA NOT REPORTED None /HPF [facility] th- [place] Epithelial Cells UA 0 TO 2 [facility]- [place] Mucus, UA NOT REPORTED None [place], [place] Other Observations UA NOT REPORTED NOT REQ. [place], [place] RBC (U) [#/Vol] None [facility], [place] Renal Epithelial, UA NOT REPORTED 0 /HPF [place] Trichomonas, UA NOT REPORTED None [place], [place] WBC, UA 0 TO 2 [place] Yeast, UA NOT REPORTED None [place], [place] - [place] Urinalysison 11-16-2019 Bilirubin Urine Negative NEGATIVE [place], [place] Color, UA YELLOW YELLOW [place] Glucose, Ur Negative NEGATIVE [place] Interpretation and review of laboratory results Abnormal [place] Ketones Ql (U) Negative NEGATIVE [place], [place] Leukocyte esterase Test strip Ql (U) TRACE Abnormal NEGATIVE [place] Nitrite, Urine Negative NEGATIVE [place] pH, UA 6.5 [place] Protein (U) [Mass/Vol] Negative NEGATIVE [place] Specific [place], UA <1.005 Low [place] Turbidity UA CLEAR CLEAR [place], [place] Urinalysis Comments NOT REPORTED [place], [place] Urine Hgb Negative NEGATIVE [place] Urobilinogen, Urine Normal Normal [place] Vital Signs Date Time Vital Sign Value Performing Clinician Darnell bell 12-23-2023 20:44-0400 Diastolic blood pressure 110 mm[Hg] Stacy Ponce APRN - SERVICE PROVIDER Work Phone: [facility] 12-23-2023 20:44-0400 Systolic blood pressure 140 mm[Hg] Stacy Ponce APRN - SERVICE PROVIDER Work Phone: [facility] 12-23-2023 20:30-0400 Heart rate 81 /min Stacy Ponce APRN - SERVICE PROVIDER Work Phone: [facility] 12-23-2023 20:30-0400 Respiratory rate 19 /min Stacy Ponce APRN - SERVICE PROVIDER Work Phone: [facility] 12-23-2023 20:30-0400 SaO2% (BldA) [Mass fraction] 97 % Stacy Ponce DIRECTOR WORK - SERVICE PROVIDER Work Phone: [facility] 12-23-2023 16:45-0400 Body temperature 97.81 [degF] Stacy Ponce DIRECTOR WORK - SERVICE PROVIDER Work Phone: [facility] Encounters Encounter Date Encounter Type Care Provider Facility Start: 04-27-2024 End: 04-27-2024 ambulatory ONIEL KELLY Not Available Start: 04-23-2024 End: 04-23-2024 ambulatory BRYANT CORDOVA Not Available Start: 04-21-2024 End: 04-23-2024 ambulatory BRYANT CORDOVA [facility] Start: 04-21-2024 End: 04-23-2024 Subsequent hospital visit by physician [facility] Cat Scan Room [facility] CT Scan Comment on above: Abdominal pain, epig astric; Nausea Start: 04-17-2024 End: 04-19-2024 ambulatory BRYANT CORDOVA [facility] Start: 04-17-2024 End: 04-17-2024 ambulatory BRYANT CORDOVA Not Available Start: 01-22-2024 End: 01-22-2024 ambulatory YUDITH CASH PINA [facility] Start: 12-23-2023 End: 12-23-2023 Emergency department patient visit [facility] ED Comment on above: Hypertension, unspec ified type (Primary Dx) Start: 12-19-2023 End: 12-19-2023 ambulatory STACY PONCE Not Available Start: 11-16-2019 End: 11-16-2019 Subsequent hospital visit by physician Stacy Ponce [facility] Laboratory Start: 02-12-2017 End: 02-12-2017 Ambulatory [facility] Physicians Procedures Date Procedure Procedure Detail Performing Clinician Start: 04-21-2024 Ct abdomen & pelvis w/contrast material Bryant Cordova DIRECTOR WORK - SERVICE PROVIDER Work Phone: Start: 01-22-2024 Microscopic observat ion [Identifier] in Cervix by Cyto stain [facility] Room Start: 12-23-2023 Radiologic exam ches t single view Andrea Pedro PA-C Work Phone: Start: 12-23-2023 Basic metabolic pane l calcium total Andrea Pedro PA-C Work Phone: Start: 12-23-2023 Ecg routine ecg w/le ast 12 lds w/i&r Andrea Pedro PA-C Work Phone: Start: 02-16-2021 Microscopic observat ion [Identifier] in Cervix by Cyto stain Stacy Ponce DIRECTOR WORK - SERVICE PROVIDER Work Phone: Start: 11-16-2019 Urinalysis microscop ic only Stacy Ponce Other Phone: Start: 11-16-2019 Urnls dip stick/tabl et rgnt auto w/o microscopy Stacy Ponce Other Phone: Plan of Treatment Date Care Activity Detail Author Start: 05-20-2027 DTaP/Tdap/Td vaccine (2 - Td or Tdap) DTaP/Tdap/Td vaccine (2 - Td or Tdap) [facility] Start: 05-20-2027 DTaP/Tdap/Td vaccine (2 - Td) DTaP/Tdap/Td vaccine (2 - Td) [place] Start: 01-21-2027 Screening for malign ant neoplasm of cervix [facility] Start: 02-16-2026 Screening for malign ant neoplasm of cervix [facility] Start: 01-26-2025 End: 01-26-2025 Patient encounter procedure 01/26/2025 1:45 PM EDT Office Visit [facility] Part of [address] [place] [address] Yudith Pina, DIRECTOR WORK - CNM [address] [place] [address] [address] [place] [address] PAP [facility] Part of [facility] Comment on above: PAP Start: 04-05-2024 COVID-19 Vaccine ( season) COVID-19 Vaccine ( season) [facility] Start: 03-05-2024 Influenza vaccination B ON [facility] Start: 02-17-2024 Screening for malign ant neoplasm of cervix Pap smear [facility] Start: 01-22-2024 End: 01-22-2024 Patient encounter procedure 01/22/2024 3:15 PM EDT Office Visit [facility] [address] [place], [place] [id number] Yudith Pina, DIRECTOR WORK - CNM [address] [place], [place] [id number] yearly [facility] Comment on above: yearly Start: 04-05-2023 COVID-19 Vaccine ( season) COVID-19 Vaccine ( season) [facility] Start: 04-05-2020 Influenza vaccination Flu vacc ine (Season Ended) [place] Start: 12-26-2019 Cervical cancer screen Cervical canc er screen [place] Start: 2008 Hepatitis B vaccine (1 of 3 - 19+ 3-dose series) Hepatitis B vaccine (1 of 3 - 19+ 3-dose series) [facility] Start: 2007 Hepatitis C screening Hepatitis C sc reen [facility] Start: 2002 Varicella vaccine (1 of 2 - 13+ 2-dose series) Varicella vaccine (1 of 2 - 13+ 2-dose series) [facility] Start: 2001 Depression Screen Depression Screen [facility] Start: 1995 Pneumococcal 0-64 ye ars Vaccine (1 of 1 - PPSV23) Pneumococcal 0-64 years Vaccine (1 of 1 - PPSV23) [place] Start: 1995 Pneumococcal 0-64 ye ars Vaccine (1 of 2 - PCV) Pneumococcal 0-64 years Vaccine (1 of 2 - PCV) [facility] Start: 1990 Varicella vaccine (1 of 2 - 2-dose childhood series) Varicella vaccine (1 of 2 - 2-dose childhood series) [facility] Start: 1989 Hepatitis B vaccine (1 of 3 - 3-dose series) Hepatitis B vaccine (1 of 3 - 3-dose series) [facility] End: 11-16-2019 Culture, Urine Culture, Urine Microbiology Routine Once for 1 Occurrences starting 11/16/2019 until 11/16[facility]: Once for 1 Occurrenc es starting 11/16/2019 until 11/16/2019 Culture, Urine Culture, Urine Microbiology Routine 11/16/2019 10:14 AM EDT [facility] [place] EKG 12 Lead EKG 12 Lead ECG STAT 12/23/2023 5:00 PM EDT [facility] Immunizations Immunization Date Immunization Notes Care Provider Norah schroeder 05-20-2017 tetanus toxoid, redu briana diphtheria toxoid, and acellular pertussis vaccine, adsorbed Stacy Fruth [facility] Payers Date Payer Category Payer Unknown [id number] 2019 Private Health Insurance [employer] xxxxxxxxxxx 2019-Present [phone] [address] [place] [address] xxxxxxxxxxx [id number] 2015 Private Health Insurance [id number] 1989 Unknown [id number] .[id number] 1989 Unknown [id number] .173 1989 Unknown [id number] .173 1989 Unknown [id number] .173 1989 Unknown [id number] .173 1989 Unknown [id number] .173 1989 Unknown [id number] .[id number] 1989 Unknown [id number] .1259 1989 Unknown [id number] .1259 1989 Unknown [id number] .[id number] Social History Date Type Detail Facility Start: 10-29-2018 Tobacco smoking stat [facility] Current some day smoker [place], [place] History of tobacco use Cigarette Smoker [place], [place] Start: 10-29-2018 End: 02-16-2021 Cigarettes smoked current (pack per day) - Reported [place], [place] Start: 10-29-2018 End: 01-22-2024 Alcohol intake Current non-drinker of alcohol (finding) [place], [place] Start: 1990 Sex Assigned At Not on file [place], [place] Start: 08-14-2022 Tobacco smoking stat [facility] Smokes tobacco daily [facility] Start: 08-14-2022 Tobacco use and exposure Smoke less tobacco non-user [facility] Start: 02-16-2021 End: 08-14-2022 Tobacco use panel [facility] Patient Health Questionnaire 9 item (PHQ-9) total score [Reported] 0 [facility] Hospital Discharge instructions 12-04-2023 Discharge InstructionsAttachments Note Date & Type Note Facility 12-04-2023 Hospital Discharg e instructions Andrea Pedro PA-C - 12/23/2023 8:43 PM EDT Continue keeping your blood pressure log and contact your PCP tomorrow as instructed The following attachments cannot be sent through Care Everywhere.Hypertension: General Info ([place] Ze[place]ander)documented in this encounter [facility] Evaluation note Note Date & Type Note Facility Evaluation note Diagnosis Hypertension, unspecified type- Primary documented in this encounter [facility] Evaluation note Note Date & Type Note Facility Evaluation note Diagnosis Abdominal pain, epigastric Nausea Nausea alone documented in this encounter [facility] Summary Purpose Family History No Family History Records FoundNo Family History Records FoundNo Family History Records Found Advance Directives No Advanced Directives Records FoundDocuments on File Type Date Recorded Patient Publicity Writer Expl anation Advance Directives and Living Will 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 Latest Code Status on File Code Status Date Activated Date Inactivated Comments Full Code 07/12/2017 9:29 AM 07/12/2017 9:30 AM Full Code 07/12/2017 5:47 AM 07/12/2017 9:29 AM Full Code 07/12/2017 5:29 AM 07/12/2017 5:47 AM Latest Code Status on File Code Status Date Activated Date Inactivated Comments Full Code 07/12/2017 9:29 AM 07/12/2017 9:30 AM Code Status History Code Status Date Activated Date Inactivated Comments Full Code 07/12/2017 5:47 AM 07/12/2017 9:29 AM Full Code 07/12/2017 5:29 AM 07/12/2017 5:47 AM Date Activated Date Inactivated Comments 07/12/2017 9:29 AM 07/12/2017 9:30 AM Date Activated Date Inactivated Comments 07/12/2017 5:47 AM 07/12/2017 9:29 AM Date Activated Date Inactivated Comments 07/12/2017 5:29 AM 07/12/2017 5:47 AM Additional Source Comments INFORMATION SOURCE (unrecogn ized section and content) DATE CREATED AUTHOR 01/29/2018 [facility] DATE CREATED AUTHOR AUTHOR'S ORGANIZ ATION 04/26/2024 [facility] DATE CREATED AUTHOR AUTHOR'S ORGANIZ ATION 04/28/[address] [facility] EPIC Reason for Visit (unrecogniz ed section and content) Reason Comments Hypertension Patient states that she was told by her SERVICE PROVIDER to keep track of her blood pressures as they were high at her appointment last week. Patient states that her blood pressures have been increasing ever since.Pt denies chest pain or SOB. Specialty Diagnoses / Procedures Referred By Osmin bonilla Referred To Contact Radiology Diagnoses Abdominal pain, epigastric Nausea Procedures CT ABDOMEN PELVIS W IV CONTRAST Additional Contrast? None CT ABDOMEN PELVIS W WO CONTRAST Additional Contrast? None Bryant Cordova, DIRECTOR WORK - SERVICE PROVIDER [address] [place] [id number] Referral ID Status Reason Start Date Expiration Date Visits Re quested Visits Authorized [id number] Closed 04/21/2024 04/21/2025 1 1 Scheduled Active and Recently Administ ered Medications (unrecognized section and content) Medication Order 12/21/2023 12/22/2023 12/23/2023 cloNIDine (CATAPRES) tablet 0.1 mg (COMPLETED) 0.1 mg, Oral, ONCE, 1 dose, On Sat12/23/23 at 1900 1903 (Given - Provid er: Stacy Macedo RN) LORazepam (ATIVAN) injection 1 mg (COMPLETED) 1 mg, IntraVENous, ONCE, 1 dose, On Sat12/23/23 at 1730 1735 (Given - Provid er: Gabi Garibay RN) Care Teams (unrecognized sec tion and content) Certified Solid Waste Facility Operator Relationship Specialty Start Date End Date Stacy Ponce APRN - NP PCP - General Nurse Practitioner 08/19/18 Certified Solid Waste Facility Operator Relationship Specialty Start Date End Date Stacy Ponce APRN - NP PCP - General Nurse Practitioner 08/19/18 FOR RECORDS PERTAINING TO PATIENTS WHO ARE OR HAVE BEEN ENROLLED IN A CHEMICAL DEPENDENCY/SUBSTANCEABUSE PROGRAM, SOME INFORMATION MAY BE OMITTED. This clinical summary was aggregated from multiple sources. Caution should be exercised in using it in the provision of clinical care. This summary normalizes information from multiple sources, and as a consequence, information in this document may materially change the coding, format and clinical context of patient data. In addition, data may be omitted in some cases. CLINICAL DECISIONS SHOULD BE BASED ON THE PRIMARY CLINICAL RECORDS. [employer] [facility]. provides no warranty or guarantee of the accuracy or completeness of information in this document.
[2024-05-12 09:48] LABS: HCG Qualitative NEGATIVE (NEGATIVE); Internal Control Within Normal Limits
[2024-05-12 09:49] VITALS: BP 134/103; PULSE 82; TEMP 36.7; O2SAT 100; BMI 23.9
[2024-05-12] MEDS: 0.9 % SODIUM CHLORIDE 500 ML 50 ML IV ×2 (10:05→11:11)
[2024-05-12 11:34] VITALS: BP 116/87; PULSE 81; TEMP 36.5; O2SAT 100
[2024-05-12 11:49] VITALS: BP 129/94; PULSE 72; O2SAT 99
[2024-05-12 12:04] VITALS: BP 148/94; PULSE 75; O2SAT 100
[2024-05-12 12:34] VITALS: BP 122/92; PULSE 70; O2SAT 95
--- NOTE | 2024-05-12 14:15 | W.PM.PROCNOT ---
Date of procedure: 05/12/24 Pre-op diagnosis: epigastric pain, GERD Post-op diagnosis: other (reflux induced distal esophagitis ) Procedure: EGD Preoperative Diagnosis:? GERD, epigastric pain Post-operative Diagnosis: reflux induced distal esophagitis Procedure: Esophagogastroduodenoscopy with biopsy ANES:? MAC Complications:? None EBL:? 1ml Finding: reflux induced distal esophagitis PROCEDURE: The patient was taken to the endoscopy suite and under monitored conditions was given adequate anesthesia until the patient was sedated.? The endoscope was passed easily into the oropharynx and into the upper esophagus.? The esophagus was noted to have distal inflammation and friable mucosa at the GE junction, the z-line was at 35cm.? The scope entered the stomach easily which distended well.? The scope was passed through the pylorus and the duodenal bulb and 1st portion of the duodenum were within normal limits.? No abnormalities identified.?The body of the stomach was carefully inspected and there were no abnormalities identified.??The scope was retroflexed and no there was no evidence of a hiatal hernia.? There was mild gastritis in the antrum of the stomach. Biopsies were taken in the antrum for H. Pylori testing.? The patient tolerated the procedure well and was transferred to the PACU. Anesthesia: MAC Surgeon: Timoteo Mcintyre Estimated blood loss (mL): 1 Pathology: other (h. pylori biopsy ) Condition: stable Disposition: PACU
== END 2024-05-12 12:40 | disposition home or self-care (01) ==
PROVIDERS: Visit Provider Surgery
PROC: (CPT 00731; principal; 2024-05-12 10:50)
DX: R10.13 Epigastric pain (principal); K21.00 Gastro-esophageal reflux disease with esophagitis, without bleeding; K29.70 Gastritis, unspecified, without bleeding; Z87.891 Personal history of nicotine dependence; I10 Essential (primary) hypertension
CPT/HCPCS: 00731; 43239; 36415; 84703; J2704